=== PATIENT | female | born 1995 | race Caucasian/White ===

== ENCOUNTER 2020-12-13 13:53 | Emergency (ER) | payer BC ==
[2020-12-13] MEDS ORDERED: Lidocaine 1% 20 ML MDV ONE (14:27)
[2020-12-13] MEDS ORDERED: Boostrix 0.5 ML (Tdap) VIAL ONE (15:32)
== END 2020-12-13 16:00 | disposition home or self-care (01) ==
LOC: MADERS 13:53
DX: S01.81XA Laceration without foreign body of other part of head, initial encounter (principal); W55.12XA Struck by horse, initial encounter
CPT/HCPCS: 12013; 90471; 90715